=== PATIENT | female | born 1945 | race Caucasian/White ===

== ENCOUNTER → 2024-11-21 | Outpatient (CLI) | payer MEDICARE, BC, SELFPAY ==
--- NOTE | 2024-11-21 13:45 | XR_ITS ---
Examination: Screening digital mammography, bilateral Computer aided detection 3-D breast Tomosynthesis, bilateral Exam date and time: November 21, 2024 1344 hours Compared to mammograms dating to December 18, 2011 Indication: Screening Technique: Nonmagnified MLO, CC views of the breasts to been obtained, reconstructed from 3-D Tomosynthesis images. R2 computer aided detection program utilized for evaluation of suspicious masses and/or abnormal calcifications. 3-D Tomosynthesis images obtained. Findings: Scattered areas of fibroglandular density. 10 mm focal asymmetry outer right breast Impression: BI-RADS Category 0: Incomplete: Need additional imaging evaluation 10 mm focal asymmetry outer right breast, recommend follow-up spot tomographic views of this asymmetry as well as right breast sonography to complete the workup
== END | disposition home or self-care (01) ==
LOC: CDIM 13:32
PROVIDERS: Referring Provider Family Medicine; Visit Provider Family Medicine
DX: Z12.31 Encounter for screening mammogram for malignant neoplasm of breast (principal); R92.323 Mammographic fibroglandular density, bilateral breasts; N64.89 Other specified disorders of breast
CPT/HCPCS: 77063; 77067

== ENCOUNTER → 2024-12-11 | Outpatient (CLI) | payer MEDICARE, BC, SELFPAY ==
[2024-12-11 15:30] LABS: Collection Type, Urine Clean Catch
[2024-12-11 16:26] LABS: Bilirubin,Urine Negative (Negative); Blood,Urine 3+ (Negative); Color,Urine Yellow (Lt Yel-Yel); Glucose, Urine Negative (Negative); Ketones,Urine Negative (Negative); Leukocyte Esterase,Urine Positive (Negative); Nitrite,Urine Negative (Negative); PH,Urine 5.5 (5.0-7.0); Protein,Urine 1+ (Neg - Trace); RBC,Urine 239 /hpf (0-3); Specific Gravity,Urine 1.021 (1.001-1.035); Squamous Epithelial Cell,Urine 3 /hpf (0-5); Transitional Epi Cells,Urine 4 /hpf (0-5); Urobilinogen,Urine Negative mg/dL (0.0-1.0); WBC,Urine 1655 /hpf (0-5)
[2024-12-11 16:33] LABS: Clarity,Urine Turbid (Clear/Hazy)
== END | disposition home or self-care (01) ==
LOC: SLDO 15:09
PROVIDERS: PCP Family Medicine; Referring Provider Family Medicine; Visit Provider Family Medicine
DX: N39.0 Urinary tract infection, site not specified (principal)
CPT/HCPCS: 81001; 87077; 87086; 87186

== ENCOUNTER → 2024-12-15 | Outpatient (CLI) | payer MEDICARE, BC, SELFPAY ==
--- NOTE | 2024-12-15 14:00 | XR_ITS ---
Examination: Breast ultrasound, unilateral, right Date and time of exam: December 25, 2024 1433 hours INDICATIONS: Mammogram November 21, 2024 10 mm focal asymmetry outer right breast Technique: Real-time kinney scale ultrasonographic imaging performed right breast including all 4 quadrants as well as nipple retroareolar and axillary region. Findings: 10:00 cyst 4 x 3 mm No solid nodules IMPRESSION: BI-RADS Category 2: Benign findings
--- NOTE | 2024-12-15 14:30 | XR_ITS ---
Examination: Diagnostic digital mammography, unilateral, right Computer aided detection 3-D breast Tomosynthesis, unilateral Date and time of exam: December 25, 2024 1451 hours INDICATIONS: Mammogram November 21, 2024 10 mm focal asymmetry outer right breast Technique: Nonmagnified MLO, CC views of the right breast have been obtained, reconstructed from 3-D Tomosynthesis images. R2 computer aided detection program utilized for evaluation of suspicious masses and/or abnormal calcifications. 3-D Tomosynthesis images obtained. Findings: Scattered areas of fibroglandular density. 10 mm nodule partially circumscribed is confirmed in the 12:00 position right breast Impression: BI-RADS category 3: Probably benign findings Recommend 1 additional 6 month right mammogram follow-up to confirm stability of 12:00 nodule right breast
== END | disposition home or self-care (01) ==
PROVIDERS: PCP Family Medicine; Referring Provider Family Medicine; Visit Provider Family Medicine
DX: R92.331 Mammographic heterogeneous density, right breast (principal); N63.15 Unspecified lump in the right breast, overlapping quadrants
CPT/HCPCS: 76641; 77061; 77065; G0279